=== PATIENT | female | born 1965 | race Caucasian/White ===

== ENCOUNTER → 2018-09-29 11:17 | Outpatient (CLI) | payer OTHER ==
--- NOTE | 2018-10-04 18:38 | ST ---
PATIENT:JENNIFER CHAVIRA MEDICAL RECORD: [id number] SEX: F LOCATION:[facility] ORDER #: ADMISSION DATE: 09/29/18 AGE OF PATIENT: 53 REFERRING PHYSICIAN: INTERPRETING PHYSICIAN: KRISTAL PORTILLO MD DATE OF SERVICE: 09/29/2018 PROCEDURE: Nuclear stress test. INDICATION: Chest pain, palpitation. TECHNIQUE: She was exercised on standard Ko protocol for 5 minutes, terminated due to achievement of 100% max target heart rate response with 26 mCi of sestamibi injected at peak stress, 9 mCi used previously for rest images. FINDINGS: Gated SPECT reveals preserved ejection fraction at 70% with good wall motion and thickening and brightening throughout all segments. SPECT imaging Cardiolite was used as myocardial fusion agent. There is homogeneous uptake throughout all segments at rest and stress with no evidence of inducible ischemia or previous infarction. OVERALL IMPRESSION: 1. This is a normal nuclear stress test with no evidence of inducible ischemia or previous infarction. 2. Gated SPECT reveals a preserved ejection fraction at 70%. In this patient with ongoing symptomatology, the current scan does not suggest the presence of hemodynamically significant coronary artery disease. Evaluate noncardiac etiology of chest pain. TRANSINT:[id number] Voice Confirmation ID: [id number] DOCUMENT ID: [id number] KRISTAL PORTILLO MD at 1838 CC: [id number] DICTATION DATE: 09/30/18 1532 MANAGEMENT INTERN: 10/01/18 0003 DEP CLI 09/29/18 [facility] [address] [id number]
== END | disposition home or self-care (01) ==
LOC: D.HCCARDIO 11:17
PROVIDERS: ATTEND Internal Medicine Interventional Cardiology
DX: R07.9 Chest pain, unspecified (principal)